=== PATIENT | male | born 2000 | race Hispanic/Latino ===

== ENCOUNTER 2023-06-24 21:03 | Emergency (ER) | payer SELFPAY ==
[2023-06-25 01:33] LABS: Bilirubin Neg (Negative); Blood, Urine Negative (Negative); Glucose, Urine (Dipstick) Normal (Negative); Ketone, Urine 150 mg/dL (Negative); Leukocyte Negative (Negative); Nitrite Negative (Negative); Protein, Urine (Dipstick) 15 mg/dl (Neg-Trace); Urobilinogen Normal mg/dL (Less than 2)
[2023-06-25 01:34] LABS: Clarity Clear (Clear)
[2023-06-25 02:01] LABS: Bacteria/HPF None Seen HPF (None Seen); CAUTI Indications for Culture Dysuria,urgency,freq; Mucous/LPF 3+ LPF (<2+); Squamous Epithelial 0-3 HPF (0-3)
[2023-06-25 02:03] LABS: Urine Culture Reflex No No
== END 2023-06-25 02:40 | disposition home or self-care (01) ==
LOC: CSHERS 21:03
DX: N50.3 Cyst of epididymis (principal); B36.0 Pityriasis versicolor; N43.3 Hydrocele, unspecified
CPT/HCPCS: 76870; 81001